=== PATIENT | male | born 1955 ===

== ENCOUNTER 2017-08-04 11:15 | Inpatient (IN) | payer OTHER ==
[~2017-08-04] VITALS: Ht 193 cm; Wt 104.3 kg
[2017-08-13] MEDS ORDERED: INTEGRA F CAPS1 EACH PO (10:35)
[2017-08-13] MEDS ORDERED: PERCOCET 5-3251 EACH PO (10:35)
[2017-08-13] MEDS ORDERED: OMEPRAZOLE20 MG PO (10:35)
[2017-08-13] MEDS ORDERED: MIRALAX17 GM PO (10:35)
== END 2017-08-13 12:38 | disposition home or self-care (01) | DRG 331 ==
LOC: ADM 11:15 → EDSTATUS 11:15 → SURG 08-09 07:00 → O/R 08-09 07:00 → SURG 08-09 11:15
PROVIDERS: Surgery
PROC: 0WQF4ZZ Repair Abdominal Wall, Percutaneous Endoscopic Approach (ICD-10-PCS; 2017-08-09)
PROC: 0DTF4ZZ Resection of Right Large Intestine, Percutaneous Endoscopic Approach (ICD-10-PCS; principal; 2017-08-09 08:45)
PROC: 07TC4ZZ Resection of Pelvis Lymphatic, Percutaneous Endoscopic Approach (ICD-10-PCS; 2017-08-09 08:45)
DX: C18.2 Malignant neoplasm of ascending colon (principal); D50.0 Iron deficiency anemia secondary to blood loss (chronic); R59.0 Localized enlarged lymph nodes; K43.9 Ventral hernia without obstruction or gangrene